=== PATIENT | female | born 2000 | race Caucasian/White ===

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

== ENCOUNTER 2020-01-01 11:39 | Emergency (ER) | payer BC, OTHER ==
[2020-01-01 11:42] VITALS: RESP 18
[2020-01-01] MEDS ORDERED: SODIUM CHLORIDE 0.9% 1,000 ML IV ONE (11:53)
[2020-01-01] MEDS ORDERED: ONDANSETRON 4 MG/2 ML VIAL IVP STA (11:53)
[2020-01-01] MEDS ORDERED: SODIUM CHLORIDE 0.9% 500 ML 500 ML IV ONE (11:53)
[2020-01-01] MEDS ORDERED: SODIUM CHLORIDE 0.9% 1,000 ML IV SCH (12:00)
[2020-01-01] MEDS ORDERED: METOCLOPRAMIDE 5 MG/ML 2 ML VIAL IVP STA (12:01)
--- NOTE | 2020-01-01 12:06 | ED ---
Nausea/Vomiting/Diarrhea HPI - General Chief complaint: Nausea/Vomiting/Diarrhea Stated complaint: vomiting/blurred vision Time Seen by Provider: 01/01/20 11:52 Source: patient Mode of arrival: ambulatory Limitations: no limitations - History of Present Illness Initial comments: 19yo female presents for chief complaint of concern for dehydration. Patient states that she has been vomiting since she found out she is . Patient states that she has had operative ultrasound confirming intrauterine however she states her last had no heart beat. Patient states that she was told it was too early for an heartbeat at that time. Patient denies any vaginal bleeding vaginal discharge or severe pain she states she is slight discomfort after vomiting. Patient states that today after vomiting she felt lightheaded and her vision was slightly blurred as though she was going to pass out. Patient states she did not have actual syncopal episode she states she remained conscious. Patient denied chest pain shortness of breath, headache or sensation the room was spinning. Patient denies additional complaints and presents to the ER for symptomatically treatment she sees Dr. Collins. - Related Data Previous Rx's Medication Instructions Recorded Cephalexin [Keflex] 500 mg PO Q12HR 3 Days #6 cap 01/01/20 Doxylamine/Pyridoxine HCl (B6) 1 each PO HS 7 Days #7 tablet. 01/01/20 [Joyce De La Garza 10-10 mg Tablet] Allergies Allergy/AdvReac Type Severity Reaction Status Date / Time No Known Allergies Allergy Verified 01/01/20 13:40 Review of Systems ROS Statement: Those systems with pertinent positive or pertinent negative responses have been documented in the HPI. ROS Other: All systems not noted in ROS Statement are negative. Past Medical History Past Medical History: No Reported History History of Any Multi-Drug Resistant Organisms: None Reported Past Surgical History: No Surgical Hx Reported Past Psychological History: No Psychological Hx Reported Smoking Status: Never smoker Past Alcohol Use History: None Reported Past Drug Use History: None Reported General Exam - General Exam Comments Initial Comments: General: The patient is awake and alert, in no distress Eye: Pupils are equal, round and reactive to light, extra-ocular movements are intact. No nystagmus. There is normal conjunctiva bilaterally. No signs of icterus. Ears, nose, mouth and throat: There are moist mucous membranes and no oral lesions. Neck: The neck is supple, there is no tenderness or JVD. Cardiovascular: There is a regular rate and rhythm. No murmur, rub or gallop is appreciated. Respiratory: Lungs are clear to auscultation, respirations are non-labored, breath sounds are equal. No wheezes, stridor, rales, or rhonchi. Gastrointestinal: Soft, non-distended, non-tender abdomen without masses or organomegaly noted. There is no rebound or guarding present. Musculoskeletal: Normal ROM, no tenderness. Strength 5/5. Sensation intact. Pulses equal bilaterally 2+. Neurological: A&O x 3. CN II-XII intact grossly, There are no obvious motor or sensory deficits. Coordination appears grossly intact. Speech is normal. Skin: Skin is warm and dry and no rashes or lesions are noted. Psychiatric: Cooperative, appropriate mood & affect, normal judgment. Limitations: no limitations Course Vital Signs 01/01/20 01/01/20 11:41 13:54 Temperature 98.7 F 98.4 F Pulse Rate 101 H 98 Respiratory 18 18 Rate Blood Pressure 138/88 139/93 O2 Sat by Pulse 100 97 Oximetry Medical Decision Making - Medical Decision Making Labs stable. +1 ketones. Patient does not appear dry. After medications, tolerating oral intake in the Er. Patient EKG WNL. Patient does not appear toxic. US live IUP with heart rate within acceptable lmits. There is bacteria in urine which will be treated. Patient case discussed with Dr. Ward who is agreeable to discharge if patient comfortable. Patient states she cannot stay as she has to go home to her son requesting discharege. Patient was hydrated in the ER. Patient is to f/u [facility] OBGYN. - Lab Data Result diagrams: 01/01/20 12:23 01/01/20 12:21 Lab Results 01/01/20 01/01/20 01/01/20 Range/Units 12:21 12:21 12:23 WBC 10.7 (4.0-11.0) k/uL RBC 5.01 (3.80-5.40) m/uL Hgb 14.8 (11.4-16.0) gm/dL Hct 46.5 H (34.0-46.0) % MCV 92.7 (80.0-100.0) fL MCH 29.6 (25.0-35.0) pg MCHC 31.9 (31.0-37.0) g/dL RDW 12.3 (11.5-15.5) % Plt Count 339 (150-450) k/uL Neutrophils % 82 % Lymphocytes % 11 % Monocytes % 5 % Eosinophils % 0 % Basophils % 0 % Neutrophils # 8.8 H (1.3-7.7) k/uL Lymphocytes # 1.2 (1.0-4.8) k/uL Monocytes # 0.5 (0-1.0) k/uL Eosinophils # 0.1 (0-0.7) k/uL Basophils # 0.0 (0-0.2) k/uL Sodium 136 L (137-145) mmol/L Potassium 4.2 (3.5-5.1) mmol/L Chloride 104 (98-107) mmol/L Carbon Dioxide 24 (22-30) mmol/L Anion Gap 8 mmol/L BUN 5 L (7-17) mg/dL Creatinine 0.46 L (0.52-1.04) mg/dL Est GFR (CKD-EPI)AfAm >90 (>60 ml/min/1.73 sqM) Est GFR (CKD-EPI)NonAf >90 (>60 ml/min/1.73 sqM) Glucose 88 (74-99) mg/dL Calcium 9.9 (8.4-10.2) mg/dL Total Bilirubin 1.7 H (0.2-1.3) mg/dL AST 18 (14-36) U/L ALT 14 (4-34) U/L Alkaline Phosphatase 75 (38-126) U/L Total Protein 6.8 (6.3-8.2) g/dL Albumin 4.5 (3.5-5.0) g/dL HCG, Quant 920979.0 mIU/mL Urine Color Yellow Urine Appearance Turbid H (Clear) Urine pH 8.0 (5.0-8.0) Ur Specific [place] 1.019 (1.001-1.035) Urine Protein Trace H (Negative) Urine Glucose (UA) Negative (Negative) Urine Ketones 1+ H (Negative) Urine Blood Negative (Negative) Urine Nitrite Negative (Negative) Urine Bilirubin Negative (Negative) Urine Urobilinogen <2.0 (<2.0) mg/dL Ur Leukocyte Esterase Moderate H (Negative) Urine RBC 3 (0-5) /hpf Urine WBC 4 (0-5) /hpf Ur Squamous Epith Cells 4 (0-4) /hpf Amorphous Sediment Occasional H (None) /hpf Urine Bacteria Many H (None) /hpf Urine Mucus Many H (None) /hpf Disposition Clinical Impression: Vomiting, Dehydration, Vomiting during Disposition: HOME SELF-CARE Condition: Good Instructions (If sedation given, give patient instructions): Nausea and Vomiting in (ED) Additional Instructions: Please use medication as discussed. Please follow-up with OBGYN in next 24-48 hours. Please return to emergency room if the symptoms increase or worsen or for any other concerns. Prescriptions: Doxylamine/Pyridoxine HCl (B6) [Joyce De La Garza 10-10 mg Tablet] 1 each PO HS 7 Days #7 tablet. Cephalexin [Keflex] 500 mg PO Q12HR 3 Days #6 cap Is patient prescribed a controlled substance at d/c from ED?: No Referrals: Antonio Trevino MD [REFERRING] - 1-2 days Time of Disposition: 13:49
[2020-01-01] MEDS ORDERED: PYRIDOXINE 100 MG/ML 1 ML VIAL IVP ONE (12:15)
[2020-01-01 12:51] LABS: Amorphous Sediment,Urine Occasional /hpf; Appearance,Urine Turbid (Clear); Bacteria,Urine Many /hpf; Bilirubin,Urine Negative (Negative); Blood,Urine Negative (Negative); Color,Urine Yellow; Glucose,Urine (UA) Negative (Negative); Ketones,Urine 1+ (Negative); Leukocyte Esterase,Urine Moderate (Negative); Mucus,Urine Many /hpf; Nitrite,Urine Negative (Negative); Protein,Urine Trace (Negative); RBC,Urine 3 /hpf (0-5); Specific Gravity,Urine 1.019 (1.001-1.035); Squamous Epithelial Cell,Urine 4 /hpf (0-4); Urobilinogen,Urine <2.0 mg/dL (<2.0); WBC,Urine 4 /hpf (0-5)
[2020-01-01 12:51] LABS: Basophils % (A) 0 %; Eosinophils # (A) 0.1 k/uL (0-0.7); Eosinophils % (A) 0 %; HCT 46.5 % (34.0-46.0); HGB 14.8 gm/dL (11.4-16.0); Lymphocytes # (A) 1.2 k/uL (1.0-4.8); Lymphocytes % (A) 11 %; MCH 29.6 pg (25.0-35.0); MCHC 31.9 g/dL (31.0-37.0); MCV 92.7 fL (80.0-100.0); Mean Platelet Volume 7.3; Monocytes # (A) 0.5 k/uL (0-1.0); Monocytes % (A) 5 %; Neutrophils # (A) 8.8 k/uL (1.3-7.7); Neutrophils % (A) 82 %; Platelet Count 339 k/uL (150-450); RBC 5.01 m/uL (3.80-5.40); RDW 12.3 % (11.5-15.5); WBC 10.7 k/uL (4.0-11.0)
[2020-01-01 13:00] LABS: ALT 14 U/L (4-34); AST 18 U/L (14-36); African American GFR (CKD) >90 (>60 ml/min/1.73 sqM); Albumin 4.5 g/dL (3.5-5.0); Alkaline Phosphatase 75 U/L (38-126); Anion Gap 8 mmol/L; Blood Urea Nitrogen 5 mg/dL (7-17); Calcium 9.9 mg/dL (8.4-10.2); Carbon Dioxide 24 mmol/L (22-30); Chloride 104 mmol/L (98-107); Glucose 88 mg/dL (74-99); Non-African American GFR(CKD) >90 (>60 ml/min/1.73 sqM); Potassium 4.2 mmol/L (3.5-5.1); Sodium 136 mmol/L (137-145); Total Bilirubin 1.7 mg/dL (0.2-1.3); Total Protein 6.8 g/dL (6.3-8.2)
--- NOTE | 2020-01-01 13:35 | US ---
EXAMINATION TYPE: Transabdominal DATE OF EXAM: 01/01/2020 1:12 PM COMPARISON: 01/18/2018 CLINICAL HISTORY: discomfort. Generalized abd pain intermittently occurring, nausea and vomiting in f irst trimester: ; LMP unknown EXAM PERFORMED: Transabdominal (TA) EXAM MEASUREMENTS: GESTATIONAL AGE / DATING Physician Established: Not yet established Dates by LMP: LMP unknown per patient Dates by First Scan: No previous. Dates by Current Scan for: (7 weeks/1 day) EDC: 08/18/2020 MATERNAL ANATOMY Uterus: 11.4 x 6.1 x 4.2cm Right Ovary: 2.9 x 2.6 x 1.8cm Left Ovary: 3.4 x 2.7 x 1.7cm Post CDS / Adnexa: wnl Presence of free fluid: no Presence of corpus luteal cyst: in left ovary = 1.2 x 1.6 x 1.3cm Presence of subchorionic bleed: no GESTATION / SURVEY CRL: 1.0cm (7 weeks/1 day) Yolk Sac (normal less than 6mm): 3.0mm Heart Rate: 149 bpm Rhythm: Normal IUP: Single, Live IUP Date of LMP: unknown Beta HcG (if available): NA Single, live IUP, 7 weeks/1 day, EDC: 08/18/2020; [id number]. IMPRESSION: 1. Live viable 7 weeks 1 day with a heart rate 149 bpm
[2020-01-01 13:55] VITALS: BP 139/93; PULSE 98; TEMP 98.4
[2020-01-02] MEDS ORDERED: PYRIDOXINE 100 MG/ML 1 ML VIAL IVP SCH (09:00)
== END 2020-01-01 13:55 | disposition home or self-care (01) ==
LOC: EC 11:39 → SUPCPDRO 11:39 → EC 13:55
DX: O21.9 Vomiting of pregnancy, unspecified (principal); O99.280 Endocrine, nutritional and metabolic diseases complicating pregnancy, unspecified trimester; E86.0 Dehydration; O99.89 Other specified diseases and conditions complicating pregnancy, childbirth and the puerperium; R82.71 Bacteriuria; Z3A.01 Less than 8 weeks gestation of pregnancy
CPT/HCPCS: 36415; 93005; 80053; 85025; 81001; 84702; 76801; 99284; 96374; 96375; 96361; J3415; J2765

== ENCOUNTER 2020-07-14 16:00 | Outpatient (CLI) | payer BC, OTHER ==
[2020-07-14 18:23] VITALS: BP 139/84; PULSE 108; RESP 17; TEMP 97.9
[2020-07-14] MEDS ORDERED: LABETALOL 100 MG TAB PO SCH (21:00)
--- NOTE | 2020-08-09 18:52 | P.MSEPDOC ---
Presenting Problems - Arrival Data Date of Arrival on Unit: 07/14/20 Time of Arrival on Unit: 16:00 Mode of Transport: Ambulatory - Complaint OB-Reason for Admission/Chief Complaint: Other Comment: pt here with c/o large gush of clear fluid at 0900 today, pt reports lower abd. cramping that comes and goes that has been happening for the last week, pt reports. having occasional elevated bps during this , pt is non compliant taking her. prescribed labetalol, discussed importance of taking medication, pt denies roque/blurred. vision/epigastric pain, reports + fm, denies vb Medical History - Information : 2 Para: 1 Term: 1 : 0 Abortions: Spontaneous or Elective: 0 Number of Living Children: 1 - Gestational Age Gestational Age by IRAIS (wks/days): 35 Weeks and 1 Days Review of Systems - Review of Systems Constitutional: No problems Breast: No problems ENT: No problems Cardiovascular: No problems Respiratory: No problems Gastrointestinal: No problems Genitourinary: No problems Musculoskeletal: No problems Neurological: No problems Skin: No problems Vital Signs - Temperature Temperature: 97.9 F Temperature Source: Temporal Artery Scan - Pulse Right Brachial Pulse Rate: 108 Pulse Assessment Method: Automatic Cuff - Respirations Respiratory Rate: 17 Oxygen Delivery Method: Room Air - Blood Pressure Right Arm Blood Pressure: 139/84 Blood Pressure Mean: 102 Blood Pressure Source: Automatic Cuff Medical Screen Scoring (Pre) - Cervical Exam Dilation: 0 cm = 0 Effacement: Exam Deferred Membranes: Intact - Uterine Contractions Frequency: > 5 minutes apart = 1 Intensity: N/A - Maternal Vital Signs Maternal Temperature: N/A Maternal Blood Pressure: Systolic >139 = 2 Signs of Preeclampsia: Headache = 1 Maternal Respirations: N/A - Maternal Trauma Maternal Trauma: N/A - Assessment - Baby A Baseline FHR: 135 Heart Rate - NICHD Category: Category I (Normal) = 0 NST: Reactive Position: N/A Station: N/A - Total Score - Baby A Total Score - Baby A: 4 - Total Score - Baby B Total Score - Baby B: 4 - Total Score - Baby C Total Score - Baby C: 4 - Level of Risk - Baby A Level of Risk - Baby A: Low (0-5) - Level of Risk - Baby B Level of Risk - Baby B: Low (0-5) - Level of Risk - Baby C Level of Risk - Baby C: Low (0-5) Physician Notification (Pre) - Physician Notified Physician Notified Date: 07/14/20 Physician Notified Time: 17:21 New Order Received: Yes (dc home 30 minutes after labetalol dose if bp less than 140/90) Disposition - Disposition OB Disposition: Discharge to home, Written follow up instructions reviewed Discharge Date: 07/14/20 Discharge Time: 18:10 I agree with the RN Medical Screening Exam: No Case reviewed; plan agreed upon as documented in EMR&OBIX.: No Comments: obix record unable to access Diagnosis: third trimester
== END 2020-07-14 18:10 | disposition home or self-care (01) ==
LOC: FBPOP 16:00
PROVIDERS: ATTEND Obstetrics & Gynecology
DX: Z36.9 Encounter for antenatal screening, unspecified (principal); Z3A.35 35 weeks gestation of pregnancy
CPT/HCPCS: 59025; 99213

== ENCOUNTER 2020-08-02 10:56 | Outpatient (CLI) | payer BC, OTHER ==
[2020-08-02 13:12] VITALS: BP 143/81; PULSE 86; RESP 16; TEMP 97.8
--- NOTE | 2020-08-03 08:01 | P.MSEPDOC ---
Presenting Problems - Arrival Data Date of Arrival on Unit: 08/02/20 Time of Arrival on Unit: 10:56 Mode of Transport: Ambulatory - Complaint OB-Reason for Admission/Chief Complaint: Possible Onset of Labor Medical History - Information : 2 Para: 1 Number of Living Children: 1 - Gestational Age Gestational Age by IARIS (wks/days): 37 Weeks and 6 Days - History Complications: Chronic HTN Review of Systems - Review of Systems Constitutional: No problems Breast: No problems ENT: No problems Cardiovascular: No problems Respiratory: No problems Gastrointestinal: No problems Genitourinary: No problems Musculoskeletal: No problems Neurological: No problems Skin: No problems Vital Signs - Temperature Temperature: 97.8 F Temperature Source: Temporal Artery Scan - Pulse Right Sitting Brachial Pulse Rate: 86 Pulse Assessment Method: Automatic Cuff - Respirations Respiratory Rate: 16 Oxygen Delivery Method: Room Air O2 Sat by Pulse Oximetry: 99 - Blood Pressure Right Arm Sitting Blood Pressure: 143/81 Blood Pressure Mean: 101 Blood Pressure Source: Automatic Cuff Medical Screen Scoring (Pre) - Cervical Exam Dilation: 1-3 cm = 1 Membranes: Intact - Uterine Contractions Frequency: N/A Duration: N/A Intensity: N/A - Maternal Vital Signs Maternal Temperature: N/A Maternal Blood Pressure: N/A Signs of Preeclampsia: N/A - Maternal Trauma Maternal Trauma: N/A - Assessment - Baby A Baseline FHR: 130 Heart Rate - NICHD Category: Category I (Normal) = 0 NST: Reactive Position: N/A - Total Score - Baby A Total Score - Baby A: 1 - Total Score - Baby B Total Score - Baby B: 1 - Total Score - Baby C Total Score - Baby C: 1 - Level of Risk - Baby A Level of Risk - Baby A: Low (0-5) - Level of Risk - Baby B Level of Risk - Baby B: Low (0-5) - Level of Risk - Baby C Level of Risk - Baby C: Low (0-5) Physician Notification (Pre) - Physician Notified Physician Notified Date: 08/02/20 Physician Notified Time: 12:30 New Order Received: Yes - Notification Comment Comment: discharge pt home at this time Disposition - Disposition OB Disposition: Physician follow up in office, Discharge to home Discharge Date: 08/02/20 Discharge Time: 12:50 I agree with the RN Medical Screening Exam: Yes Case reviewed; plan agreed upon as documented in EMR&OBIX.: Yes Comments: Patient was neither seen nor examined by me Diagnosis: FALSE LABOR AT OR AFTER 37 COMPLETED WEEKS OF GESTATION
== END 2020-08-02 12:50 | disposition home or self-care (01) ==
LOC: FBPOP 10:56
PROVIDERS: ATTEND Obstetrics & Gynecology
DX: O47.1 False labor at or after 37 completed weeks of gestation (principal); Z3A.37 37 weeks gestation of pregnancy
CPT/HCPCS: 59025; 99213

== ENCOUNTER 2020-08-08 16:46 | Inpatient (IN) | payer BC, OTHER ==
[2020-08-08 18:31] LABS: Appearance,Urine Cloudy (Clear); Bacteria,Urine Rare /hpf; Bilirubin,Urine Negative (Negative); Blood,Urine Negative (Negative); Color,Urine Yellow; Glucose,Urine (UA) Negative (Negative); Ketones,Urine Negative (Negative); Leukocyte Esterase,Urine Trace (Negative); Mucus,Urine Rare /hpf; Nitrite,Urine Negative (Negative); Protein,Urine Negative (Negative); RBC,Urine 1 /hpf (0-5); Specific Gravity,Urine 1.014 (1.001-1.035); Squamous Epithelial Cell,Urine 1 /hpf (0-4); Urobilinogen,Urine <2.0 mg/dL (<2.0); WBC,Urine 4 /hpf (0-5)
[2020-08-08 18:34] LABS: Basophils % (A) 0 %; Eosinophils # (A) 0.1 k/uL (0-0.7); Eosinophils % (A) 1 %; HCT 35.5 % (34.0-46.0); HGB 11.3 gm/dL (11.4-16.0); Lymphocytes # (A) 1.8 k/uL (1.0-4.8); Lymphocytes % (A) 14 %; MCH 28.1 pg (25.0-35.0); MCHC 31.8 g/dL (31.0-37.0); MCV 88.4 fL (80.0-100.0); Monocytes % (A) 8 %; Neutrophils # (A) 9.6 k/uL (1.3-7.7); Neutrophils % (A) 75 %; Platelet Count 445 k/uL (150-450); RBC 4.02 m/uL (3.80-5.40); RDW 13.7 % (11.5-15.5); WBC 12.8 k/uL (4.0-11.0)
[2020-08-08] MEDS: LABETALOL 200 MG TAB PO SCH (18:42)
[2020-08-08 18:43] LABS: ALT 12 U/L (4-34); AST 18 U/L (14-36); African American GFR (CKD) >90 (>60 ml/min/1.73 sqM); Blood Urea Nitrogen 7 mg/dL (7-17); LDH 411 U/L (313-618); Non-African American GFR(CKD) >90 (>60 ml/min/1.73 sqM); Uric Acid 3.8 mg/dL (3.7-7.4)
[2020-08-08 19:15] LABS: Creatinine,Urine Random 91.8 mg/dL
[2020-08-08 19:16] LABS: Creatinine,Urine Random 90.2 mg/dL; Protein/Creatinine Ratio,Urine 0.177
[2020-08-09] MEDS ORDERED: CALCIUM CARBONATE 500 MG CHEWABLE PO PRN (03:16)
[2020-08-09] MEDS ORDERED: OXYTOCIN 10 UNIT/ML 1 ML VIAL IM PRN (06:41)
[2020-08-09] MEDS ORDERED: TERBUTALINE 1 MG/ML VIAL SQ PRN (06:41)
[2020-08-09] MEDS ORDERED: CARBOPROST TROMETHAMINE 250 MCG/ML 1 ML AMP IM PRN (06:41)
[2020-08-09] MEDS ORDERED: METHYLERGONOVINE 0.2 MG/ML 1 ML AMP IM PRN (06:41)
[2020-08-09] MEDS ORDERED: LIDOCAINE 0.5% (PF) 5 MG/ML (50 ML SDV) SQ PRN (06:41)
[2020-08-09] MEDS ORDERED: OXYTOCIN 30 UNITS/500 ML NS 30 UNIT in SALINE 1 500ML.BAG IV SCH (06:45)
[2020-08-09] MEDS: LABETALOL 200 MG TAB PO SCH ×2 (07:03→22:02)
[2020-08-09 07:26] LABS: Basophils % (A) 0 %; Eosinophils # (A) 0.1 k/uL (0-0.7); Eosinophils % (A) 1 %; HCT 34.7 % (34.0-46.0); HGB 10.9 gm/dL (11.4-16.0); Hypochromasia Slight; Lymphocytes # (A) 1.8 k/uL (1.0-4.8); Lymphocytes % (A) 15 %; MCH 27.6 pg (25.0-35.0); MCHC 31.5 g/dL (31.0-37.0); MCV 87.9 fL (80.0-100.0); Mean Platelet Volume 8.3; Monocytes # (A) 0.8 k/uL (0-1.0); Monocytes % (A) 6 %; Neutrophils # (A) 9.5 k/uL (1.3-7.7); Neutrophils % (A) 77 %; Platelet Count 399 k/uL (150-450); RBC 3.96 m/uL (3.80-5.40); RDW 13.7 % (11.5-15.5); WBC 12.4 k/uL (4.0-11.0)
[2020-08-09] MEDS: LACTATED RINGERS 1,000 ML IV SCH ×2 (07:27→10:28)
--- NOTE | 2020-08-09 08:36 | P.HPOB ---
History of Present Illness H&P Date: 08/09/20 This is a 20-year-old white female 2 para 1001 EDC 08/17/2020 at 39 weeks gestation. Patient presented to labor and delivery yesterday from the office with elevated blood pressures and a single deceleration. Her history is significant for -induced hypertension, on labetalol 200 mg twice daily. Yesterday in the office during the course of an NST, a single deceleration was noted that was judged to be type I. She was sent to labor and delivery for further monitoring, where 3-4 variable decelerations were noted. Decision was made to admit the patient for overnight, and for induction this morning. Fetus is been active throughout the . Patient denies he adache, visual changes, or right upper quadrant pain. New para with For anxiety. Past surgical history is negative. Current medications labetalol 200 mg twice daily, Zofran 4 mg when necessary, vitamin daily. ALLERGIES none known. Family history significant for hypertension and diabetes, PCOS. Social history patient is single, father of the baby is involved. She denies tobacco alcohol or drug use. history is significant for blood type A+, rubella status immune. Urine culture, hepatitis B surface antigen, HIV testing, gonorrhea and chlamydia cultures, group B strep cultures all negative. One-hour Glucola 128. On examination patient is 5 foot 1 inch, 146 pounds, initial blood pressure on admission 160/80, repeat 138/72. The general physical exam is within normal limits, the chest is clear in all armendariz. Extremities reveal no edema. Reflexes are normal, 2+ bilateral lower extremities. Cervix is 3 cm dilated, 70% effaced, -2 station, vertex presentation. Artificial amniorrhexis reveals clear fluid. Internal scalp lead is applied. heart tracing this morning is consistent with reactive NST. Impression: 39 week intrauterine , nonreassuring heart tones yesterday, gestational hypertension. For induction of labor this morning. Plan: Close maternal and surveillance. Oxytocin per hospital protocol. Analgesic options reviewed. Anticipate normal spontaneous vaginal delivery. Review of Systems Constitutional: Reports as per HPI Past Medical History Past Medical History: No Reported History History of Any Multi-Drug Resistant Organisms: None Reported Past Surgical History: No Surgical Hx Reported Past Anesthesia/Blood Transfusion Reactions: No Reported Reaction Past Psychological History: No Psychological Hx Reported, Anxiety Smoking Status: Never smoker Past Alcohol Use History: None Reported Past Drug Use History: None Reported - Past Family History Mother Family Medical History: No Reported History Medications and Allergies Home Medications Medication Instructions Recorded Confirmed Type Labetalol [Trandate] 200 mg PO BID 07/14/20 08/08/20 History Pnv,Calcium 72/Iron/Folic Acid 1 tablet PO DAILY 07/14/20 08/08/20 History [ Plus Tablet] Allergies Allergy/AdvReac Type Severity Reaction Status Date / Time No Known Allergies Allergy Verified 08/08/20 16:56 Exam Vital Signs Temp Pulse Resp BP 08/09/20 03:57 73 20 131/60 08/08/20 23:51 97.7 F 78 20 139/79 08/08/20 19:24 98.2 F 71 16 139/76 08/08/20 17:28 97.9 F 96 16 160/80 Intake and Output 08/08/20 08/09/20 08/09/20 22:59 06:59 14:59 Intake Total 600 Balance 600 Intake: Oral 600 Other: # Voids 4 2 Weight 63.503 kg See dictation under HPI please Results Result Diagrams: 08/09/20 07:17 08/08/20 18:15 Abnormal Lab Results - Last 24 Hours (Table) 08/08/20 08/08/20 08/08/20 Range/Units 18:00 18:00 18:15 WBC (4.0-11.0) k/uL Hgb (11.4-16.0) gm/dL Neutrophils # (1.3-7.7) k/uL Creatinine 0.49 L (0.52-1.04) mg/dL Urine Appearance Cloudy H (Clear) Ur Leukocyte Esterase Trace H (Negative) Urine Bacteria Rare H (None) /hpf Urine Mucus Rare H (None) /hpf U Random Total Protein 16 H (<12) mg/dL 08/08/20 08/09/20 Range/Units 18:15 07:17 WBC 12.8 H 12.4 H (4.0-11.0) k/uL Hgb 11.3 L 10.9 L (11.4-16.0) gm/dL Neutrophils # 9.6 H 9.5 H (1.3-7.7) k/uL Creatinine (0.52-1.04) mg/dL Urine Appearance (Clear) Ur Leukocyte Esterase (Negative) Urine Bacteria (None) /hpf Urine Mucus (None) /hpf U Random Total Protein (<12) mg/dL Assessment and Plan Assessment: 39 week intrauterine , hypertension of , nonreassuring heart tones upon assessment yesterday. Plan: All signs at this time reassuring. Oxytocin per hospital protocol. Close maternal and surveillance. Analgesic options reviewed. Anticipate normal spontaneous vaginal delivery. Time with Patient: Less than 30
[2020-08-09] MEDS ORDERED: ROPIVACAINE 100 MG, fentaNYL (PF) 200 MCG in SODIUM CHLORIDE 0.9% 76 ML EPIDURAL ONE (10:30)
[2020-08-09] MEDS ORDERED: diphenhydrAMINE ELIXIR 25 MG/10 ML CUP PO PRN (15:56)
[2020-08-09] MEDS ORDERED: ACETAMINOPHEN TAB 325 MG TAB PO PRN (15:56)
[2020-08-09] MEDS ORDERED: ZOLPIDEM 5 MG TAB PO PRN (15:56)
[2020-08-09] MEDS ORDERED: diphenhydrAMINE 25 MG CAP PO PRN (15:56)
[2020-08-09] MEDS ORDERED: HYDROCORTISONE 2.5% RECTAL CREAM 30 GM TUBE RECTAL PRN (15:56)
[2020-08-09] MEDS ORDERED: LANOLIN CREAM 5 GM TUBE TOPICAL PRN (15:56)
[2020-08-09] MEDS ORDERED: diphenhydrAMINE 50 MG/ML 1 ML VIAL IVP PRN ×2 (15:56)
[2020-08-09] MEDS ORDERED: diphenhydrAMINE 50 MG CAP PO PRN (15:56)
[2020-08-09] MEDS ORDERED: BENZOCAINE/MENTHOL SPRAY 1 GM/SPRAY AEROSOL TOPICAL PRN (15:56)
[2020-08-09] MEDS ORDERED: SIMETHICONE 80 MG CHEWABLE PO PRN (15:56)
--- NOTE | 2020-08-09 15:56 | P.PROBDLV ---
Vaginal Delivery Note - . Vaginal Delivery Note: This is a 20-year-old white female 2 para 1001 EDC 08/17/2020 at 39 weeks gestation. Patient presented last evening with elevated blood pressures in the office, on labetalol 200 mg twice a day. Blood pressures stabilized in triage, however several variable type decelerations were noted spontaneously, and the decision was made to monitor the patient through the evening. This morning, patient was 3 cm dilated, 70% effaced, and artificial amniorrhexis revealed clear fluid. Oxytocin was started and titrated per hospital protocol. Her blood pressure remained stable throughout the day. Epidural was placed per her request. She became completely dilated at 1515 hrs. and began the second stage of labor at that time. Perineal body was prepped and draped in usual sterile fashion. With excellent maternal expulsive efforts the infant's head delivered occiput anterior and he restituted accordingly. There was no nuchal cord noted. The left or anterior shoulder was delivered easily from underneath the pubic symphysis at which time the oropharynx, nasopharynx, and external nares were all bulb suctioned on the perineal body. Patient was officially delivered of a liveborn male infant at 1538 hrs. Umbilical cord was doubly clamped and ligated, he was handed to waiting nurses for evaluation where scores of 9 and 9 at one and 5 minutes respectively were given. weight 3545 g or 7 lbs. 13 oz. Placenta delivered spontaneously, it was inspected and noted to be intact with trivascular cord at 1540 hrs. Uterus is then massaged. Careful inspection of the cervix, vagina, perineum, periurethral, and perirectal areas revealed no significant lacerations. There was a small skin separation next to the clitoris which was superficial, less than 1 cm, and clinically unremarkable. Total estimated blood loss 250 mL's. All sponge needle and instrument counts are correct. Patient is allowed to begin the bonding experience with the family. She is requesting circumcision for her infant son.
[2020-08-09] MEDS: IBUPROFEN 600 MG TAB PO PRN (16:23)
[2020-08-09] MEDS: SENNOSIDES-DOCUSATE SODIUM 1 EACH TAB PO SCH (22:18)
[2020-08-10] MEDS: IBUPROFEN 600 MG TAB PO PRN (01:40)
[2020-08-10 03:34] VITALS: RESP 16
--- NOTE | 2020-08-10 07:37 | P.DS ---
Providers Date of admission: 08/09/20 06:27 Expected date of discharge: 08/10/20 Attending physician: Berna Collins Primary care physician: Stated None Hospital Course: This is a 20-year-old white female 2 para 1001 EDC 08/17/2020 at 39 weeks gestation. Patient presented with mildly elevated blood pressures and nonreassuring heart tones for induction. Fetus is been active throughout the . Patient is on labetalol 200 mg twice daily. Admitting blood pressure 160/80, repeat 138/72. Please see dictated history and physical for details. Artificial amniorrhexis revealed clear fluid. Epidural was placed per patient's request. She went on to deliver vaginally a liveborn male infant with scores of 9 and 9 at one and 5 minutes respectively. Infant weighed 7 lbs. 13 oz. or 3545 g. Estimated blood loss 250 mL's. Please see dictated delivery note for details. This 20 the patient is doing well. Her blood pressure is stable, 130s over 70s to 80s. She is voiding, ambulating, passing flatus without difficulty. Vital signs are stable and she is afebrile. Breast-feeding is going well. I have given her prescription for a double electric breast pump. Circumcision is performed this morning. Patient is judged to be in good condition for discharge home. She will follow-up with me in the office in 2 weeks, continuing daily blood pressure monitoring and documentation. She will continue labetalol 200 mg twice a day. She will call with any fevers shakes or chills, foul smelling or copious lochia, with the passage of large blood clots, with any pain not alleviated by [id number] products, or indeed with any concerns. [place] infant will follow-up with illuminator as per recommendations. Patient Condition at Discharge: Good Plan - Discharge Summary Discharge Rx Participant: No New Discharge Prescriptions: No Action Labetalol [Trandate] 200 mg PO BID Pnv,Calcium 72/Iron/Folic Acid [ Plus Tablet] 1 tablet PO DAILY Discharge Medication List Labetalol [Trandate] 200 mg PO BID 07/14/20 [History] Pnv,Calcium 72/Iron/Folic Acid [ Plus Tablet] 1 tablet PO DAILY 07/14/20 [History] Follow up Appointment(s)/Referral(s): Berna Collins MD [STAFF PHYSICIAN] - 2 Weeks
[2020-08-10] MEDS: LABETALOL 200 MG TAB PO SCH (08:57)
[2020-08-10] MEDS: SENNOSIDES-DOCUSATE SODIUM 1 EACH TAB PO SCH (08:59)
[2020-08-10 15:45] VITALS: BP 138/81; PULSE 68; TEMP 98.5
--- NOTE | 2020-08-11 01:07 | P.MSEPDOC ---
Presenting Problems - Arrival Data Date of Arrival on Unit: 08/09/20 Time of Arrival on Unit: 06:00 Mode of Transport: Wheelchair - Complaint OB-Reason for Admission/Chief Complaint: Other Comment: pt was at office for check up, pt reports being examined in office and being dilated to 3 cm, pt has been feeling increase in contraction discomfort since exam, pt here for further monitoring due to living an hour away, pt states she has had elevated bps with , denies roque/blurred vision/epigastric pain Medical History - Information : 2 Para: 1 Term: 1 : 0 Abortions: Spontaneous or Elective: 0 Number of Living Children: 1 - Gestational Age Gestational Age by IRAIS (wks/days): 38 Weeks and 6 Days Review of Systems - Review of Systems Constitutional: No problems Breast: No problems ENT: No problems Cardiovascular: No problems Respiratory: No problems Gastrointestinal: No problems Genitourinary: No problems Musculoskeletal: No problems Neurological: No problems Skin: No problems Vital Signs - Temperature Temperature: 98.5 F Temperature Source: Oral - Pulse Right Brachial Pulse Rate: 68 Pulse Assessment Method: Pulse Oximetry - Respirations Respiratory Rate: 16 Oxygen Delivery Method: Room Air O2 Sat by Pulse Oximetry: 100 - Blood Pressure Right Arm Blood Pressure: 138/81 Blood Pressure Mean: 100 Blood Pressure Source: Automatic Cuff - Comment Vital Signs Comment: 157/78, 138/72, 136/72 Medical Screen Scoring (Pre) - Cervical Exam Dilation: 1-3 cm = 1 Effacement: More than 50% = 2 Membranes: Intact - Uterine Contractions Frequency: > 5 minutes apart = 1 Duration: > 40 seconds = 2 Intensity: N/A - Maternal Vital Signs Maternal Temperature: N/A Maternal Blood Pressure: Systolic >139 = 2 Signs of Preeclampsia: N/A Maternal Respirations: N/A - Maternal Trauma Maternal Trauma: N/A - Assessment - Baby A Baseline FHR: 155 Heart Rate - NICHD Category: Category I (Normal) = 0 NST: Reactive Position: N/A Station: N/A - Total Score - Baby A Total Score - Baby A: 8 - Total Score - Baby B Total Score - Baby B: 8 - Total Score - Baby C Total Score - Baby C: 8 - Level of Risk - Baby A Level of Risk - Baby A: Medium (6-9) - Level of Risk - Baby B Level of Risk - Baby B: Medium (6-9) - Level of Risk - Baby C Level of Risk - Baby C: Medium (6-9) Physician Notification (Pre) - Physician Notified Physician Notified Date: 08/08/20 Physician Notified Time: 17:19 New Order Received: Yes (monitor pt in triage) Disposition - Disposition OB Disposition: Observe, Triage Discharge Date: 08/10/20 Discharge Time: 17:55 I agree with the RN Medical Screening Exam: Yes Case reviewed; plan agreed upon as documented in EMR&OBIX.: Yes Diagnosis: LOUSE-BORNE TYPHUS
== END 2020-08-10 17:55 | disposition home or self-care (01) | DRG 807 ==
LOC: FBPOP 16:46 → 4FBP 17:50 → OBSVTOIN 08-09 06:27
PROVIDERS: ADMIT Obstetrics & Gynecology; ATTEND Obstetrics & Gynecology
PROC: 10E0XZZ Delivery of Products of Conception, External Approach (ICD-10-PCS; principal; 2020-08-09)
PROC: 10907ZC Drainage of Amniotic Fluid, Therapeutic from Products of Conception, Via Natural or Artificial Opening (ICD-10-PCS; 2020-08-09)
PROC: 3E033VJ Introduction of Other Hormone into Peripheral Vein, Percutaneous Approach (ICD-10-PCS; 2020-08-09)
PROC: 3E0R3BZ Introduction of Anesthetic Agent into Spinal Canal, Percutaneous Approach (ICD-10-PCS; 2020-08-09)
DX: O76 Abnormality in fetal heart rate and rhythm complicating labor and delivery (principal); Z37.0 Single live birth; O99.344 Other mental disorders complicating childbirth; O13.4 Gestational [pregnancy-induced] hypertension without significant proteinuria, complicating childbirth; F41.9 Anxiety disorder, unspecified; Z79.899 Other long term (current) drug therapy; Z3A.39 39 weeks gestation of pregnancy; Z82.49 Family history of ischemic heart disease and other diseases of the circulatory system; Z83.3 Family history of diabetes mellitus
CPT/HCPCS: 81001; 82565; 82570; 83615; 84156; 84450; 84460; 84520; 84550; 85025; 86850; 86900; 86901

== ENCOUNTER 2021-11-23 22:45 | Outpatient (CLI) | payer BC, OTHER ==
[2021-11-23 23:38] LABS: Amorphous Sediment,Urine Occasional /hpf; Appearance,Urine Turbid (Clear); Bacteria,Urine Rare /hpf; Bilirubin,Urine Negative (Negative); Blood,Urine Negative (Negative); Color,Urine Yellow; Glucose,Urine (UA) Negative (Negative); Ketones,Urine 1+ (Negative); Leukocyte Esterase,Urine Negative (Negative); Mucus,Urine Rare /hpf; Nitrite,Urine Negative (Negative); PH, Urine 7.5 (5.0-8.0); Protein,Urine Negative (Negative); RBC,Urine <1 /hpf (0-5); Squamous Epithelial Cell,Urine 2 /hpf (0-4); Urobilinogen,Urine <2.0 mg/dL (<2.0); WBC,Urine 1 /hpf (0-5)
[2021-11-24 00:35] VITALS: BP 130/63; PULSE 72; RESP 16; TEMP 98
--- NOTE | 2021-12-10 10:54 | P.MSEPDOC ---
Presenting Problems - Arrival Data Date of Arrival on Unit: 11/23/21 Time of Arrival on Unit: 22:45 Mode of Transport: EMS - Complaint OB-Reason for Admission/Chief Complaint: Pain Comment: back pain, suprapubic pressure, spotting one time at 1500 Medical History - Information : 3 Para: 2 Term: 0 : 2 Abortions: Spontaneous or Elective: 0 Number of Living Children: 2 - Gestational Age Gestational Age by IRAIS (wks/days): 28 Weeks and 4 Days - History Complications: Prior Review of Systems - Review of Systems Constitutional: No problems Breast: No problems ENT: No problems Cardiovascular: No problems Respiratory: No problems Gastrointestinal: No problems Genitourinary: No problems Musculoskeletal: No problems Neurological: No problems Skin: No problems Vital Signs - Temperature Temperature: 98 F Temperature Source: Oral - Pulse Right Sitting Pulse Rate: 72 Pulse Assessment Method: Automatic Cuff - Respirations Respiratory Rate: 16 Oxygen Delivery Method: Room Air - Blood Pressure Right Arm Sitting Blood Pressure: 130/63 Blood Pressure Mean: 85 Blood Pressure Source: Automatic Cuff Medical Screen Scoring - Cervical Exam Membranes: Intact - Assessment - Baby A Baseline FHR: 135 Heart Rate - NICHD Category: Category I (Normal) NST: Reactive Physician Notification - Physician Notified Physician Notified Date: 11/23/21 Physician Notified Time: 23:39 Physician: Sukhi Horvath Order Received: Yes Maternal Triage Index - Maternal Triage Index Presenting for scheduled procedure w/no complaint: No - Stat/Priority 1 Stat Priority 1: No - Urgent/Priority 2 Urgent Priority 2: No - Prompt/Priority 3 Prompt Priority 3: No - Non-Urgent/Priority 4 Non-Urgent Priority 4: No - Scheduled/Requesting Priority 5 Scheduled/Requesting Priority 5: No Disposition - Disposition OB Disposition: Discharge to home, Written follow up instructions reviewed Discharge Date: 11/23/21 Discharge Time: 23:52 I agree with the RN Medical Screening Exam: Yes Case reviewed; plan agreed upon as documented in EMR&OBIX.: Yes Diagnosis: RELATED CONDITIONS, UNSPECIFIED, THIRD TRIMESTER
== END 2021-11-23 23:52 | disposition home or self-care (01) ==
LOC: FBPOP 22:45
PROVIDERS: ATTEND Obstetrics & Gynecology
DX: O26.93 Pregnancy related conditions, unspecified, third trimester (principal); Z3A.28 28 weeks gestation of pregnancy
CPT/HCPCS: 59025; 81001; 99213

== ENCOUNTER 2022-01-26 01:24 | Inpatient (IN) | payer BC, OTHER ==
[2022-01-26] MEDS ORDERED: LIDOCAINE 0.5% (PF) 5 MG/ML (50 ML SDV) SQ PRN (01:53)
[2022-01-26] MEDS ORDERED: OXYTOCIN 10 UNIT/ML 1 ML VIAL IM PRN (01:53)
[2022-01-26] MEDS ORDERED: TERBUTALINE 1 MG/ML VIAL SQ PRN (01:53)
[2022-01-26] MEDS ORDERED: METHYLERGONOVINE 0.2 MG/ML 1 ML AMP IM PRN (01:53)
[2022-01-26] MEDS ORDERED: CARBOPROST TROMETHAMINE 250 MCG/ML 1 ML AMP IM PRN (01:53)
[2022-01-26] MEDS: LACTATED RINGERS 1,000 ML IV SCH ×2 (02:10→02:41)
[2022-01-26 02:20] LABS: Basophils # (A) 0.1 k/uL (0-0.2); Basophils % (A) 1 %; Eosinophils # (A) 0.1 k/uL (0-0.7); Eosinophils % (A) 1 %; HCT 36.8 % (34.0-46.0); HGB 11.6 gm/dL (11.4-16.0); Lymphocytes # (A) 2.9 k/uL (1.0-4.8); Lymphocytes % (A) 27 %; MCH 27.9 pg (25.0-35.0); MCHC 31.5 g/dL (31.0-37.0); MCV 88.6 fL (80.0-100.0); Mean Platelet Volume 8.5; Monocytes % (A) 10 %; Neutrophils # (A) 6.2 k/uL (1.3-7.7); Neutrophils % (A) 59 %; Platelet Count 418 k/uL (150-450); RBC 4.15 m/uL (3.80-5.40); RDW 13.6 % (11.5-15.5); WBC 10.5 k/uL (3.8-10.6)
--- NOTE | 2022-01-26 05:19 | P.HPOB ---
History of Present Illness H&P Date: 01/26/22 Chief Complaint: IUP at 37-4/7 weeks, labor 21-year-old 002 at 37-4/7 weeks that presents to labor and delivery with complaints of spontaneous rupture of membranes and contractions. Patient states her water broke around 2345 which was clear in nature. Patient noted painful contractions soon after. Patient did call the ambulance and presented to labor and delivery. Patient has been receiving routine care which has been complicated by diagnosis of gestational hyper her tension which she was taken 100 mg of labetalol twice daily. Patient notes good movement. On bloodwork this patient is a blood type of A+, rubella status immune, hepatitis B surface antigen negative, HIV negative, RPR is nonreactive, group beta strep cultures are negative. Review of Systems Constitutional: Denies chills, Denies fatigue, Denies fever Ears, nose, mouth and throat: Denies headache Cardiovascular: Denies leg edema Respiratory: Denies dyspnea Gastrointestinal: Denies constipation, Denies diarrhea, Denies nausea, Denies vomiting Genitourinary: Reports Past Medical History Past Medical History: No Reported History History of Any Multi-Drug Resistant Organisms: None Reported Past Surgical History: No Surgical Hx Reported Past Anesthesia/Blood Transfusion Reactions: No Reported Reaction Past Psychological History: No Psychological Hx Reported, Anxiety Smoking Status: Never smoker Past Alcohol Use History: None Reported Past Drug Use History: None Reported - Past Family History Mother Family Medical History: No Reported History Medications and Allergies Home Medications Medication Instructions Recorded Confirmed Type Vit No.180/Iron/Folic 1 tablet PO DAILY 07/14/20 01/26/22 History [ Plus Tablet] Labetalol [Trandate] 200 mg PO BID 01/26/22 01/26/22 History Allergies Allergy/AdvReac Type Severity Reaction Status Date / Time No Known Allergies Allergy Verified 01/26/22 01:51 Exam Osteopathic Statement: *. No significant issues noted on an osteopathic structural exam other than those noted in the History and Physical/Consult. 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 Nonlabored breathing is appreciated, heart has a regular rate and rhythm, abdomen is gravid, on cervical exam per RN at the time of admission is 5 cm 100% effaced -2 station grossly ruptured. heart tones are noted to be category 1 and she is lori every 3-4 minutes. Results Result Diagrams: 01/26/22 02:09 Assessment and Plan (1) 37 weeks gestation of Current Visit: Yes Status: Acute Code(s): Z3A.37 - 37 WEEKS GESTATION OF SNOMED Code(s): 09547064 (2) Spontaneous onset of labor Current Visit: No Status: Acute Code(s): YLW4113 - SNOMED Code(s): 62981327 (3) Spontaneous rupture of membranes Current Visit: No Status: Acute Code(s): CTS5797 - SNOMED Code(s): 694410030 Plan: 21-year-old 002 at 37-4/7 weeks presents with complaints of spontaneous rupture of membranes and contractions. Patient is noted to be grossly ruptured and admitted to labor and delivery. Patient is requesting epidural. Anesthesia will be notified. Anticipate spontaneous vaginal delivery.
[2022-01-26] MEDS ORDERED: SIMETHICONE 80 MG CHEWABLE PO PRN (05:21)
[2022-01-26] MEDS ORDERED: diphenhydrAMINE 50 MG CAP PO PRN (05:21)
[2022-01-26] MEDS ORDERED: ZOLPIDEM 5 MG TAB PO PRN (05:21)
[2022-01-26] MEDS ORDERED: BENZOCAINE/MENTHOL SPRAY 1 GM/SPRAY AEROSOL TOPICAL PRN (05:21)
[2022-01-26] MEDS ORDERED: diphenhydrAMINE 25 MG CAP PO PRN (05:21)
[2022-01-26] MEDS ORDERED: LANOLIN CREAM 5 GM TUBE TOPICAL PRN (05:21)
[2022-01-26] MEDS ORDERED: HYDROCORTISONE 2.5% RECTAL CREAM 30 GM TUBE RECTAL PRN (05:21)
[2022-01-26] MEDS ORDERED: diphenhydrAMINE 50 MG/ML 1 ML VIAL IVP PRN ×2 (05:21)
--- NOTE | 2022-01-26 05:21 | P.PROBDLV ---
Vaginal Delivery Note - . Vaginal Delivery Note: Findings, viable male infant delivered at 501, weight of 7 lbs. 1 oz., Apgars of 9 and 9 at one and 5 metastases respectively. 21-year-old 002 at 37-4/7 weeks presents to labor and delivery with complaints of spontaneous rupture of membranes clear in nature. Patient is noting regular strong contractions. Patient is noted to be 570 m and was admitted to labor and delivery. Patient quickly requested epidural. Epidural was placed without difficulty by the anesthesia department. Patient progresses labor eventually becoming complete. Patient was placed in the modified lithotomy position began pushing and had a normal spontaneous vaginal delivery of a viable male at 501, weight of 7 lbs. 1 oz., Apgars of 9 and 9 at one and 5 metastases respectively. After two-minute delayed the umbilical cord was doubly clamped and cut. A spontaneous cry was noted at . The placenta was delivered spontaneous intact with a three-vessel cord being noted. On inspection of the patient's vaginal vault no lacerations were appreciated. Uterus is noted to be firm and below the umbilicus. All counts are noted to be correct 2 at the end of the delivery. Patient and tolerated delivery well and are resting comfortably.
[2022-01-26] MEDS ORDERED: OXYTOCIN 30 UNITS/500 ML NS 30 UNIT in SALINE 1 500ML.BAG IV SCH (05:30)
[2022-01-26] MEDS: IBUPROFEN 600 MG TAB PO SCH ×3 (08:01→20:05)
[2022-01-26] MEDS: SENNA LEAF EXTRACT SYRUP 528 MG/15 ML CUP PO SCH ×2 (08:02→20:06)
[2022-01-26] MEDS: SENNOSIDES-DOCUSATE SODIUM 1 EACH TAB PO SCH ×2 (08:02→20:05)
[2022-01-26] MEDS: LABETALOL 100 MG TAB PO SCH ×2 (08:04→20:05)
[2022-01-26] MEDS: PRENATAL VIT-IRON-FOLIC ACID 1 EACH TABLET PO SCH (10:28)
[2022-01-26] MEDS ORDERED: ROPIVACAINE 100 MG, fentaNYL (PF). 200 MCG in SODIUM CHLORIDE 0.9% 76 ML EPIDURAL ONE (10:49)
[2022-01-26] MEDS: ACETAMINOPHEN TAB 325 MG TAB PO PRN (22:22)
[2022-01-27] MEDS: IBUPROFEN 600 MG TAB PO SCH ×2 (01:41→08:50)
[2022-01-27] MEDS: ACETAMINOPHEN TAB 325 MG TAB PO PRN (04:29)
[2022-01-27] MEDS: SENNOSIDES-DOCUSATE SODIUM 1 EACH TAB PO SCH (08:51)
[2022-01-27] MEDS: PRENATAL VIT-IRON-FOLIC ACID 1 EACH TABLET PO SCH (08:51)
[2022-01-27] MEDS: LABETALOL 100 MG TAB PO SCH (08:55)
[2022-01-27 08:59] VITALS: BP 130/88; PULSE 73; RESP 18; TEMP 98.1
--- NOTE | 2022-01-27 09:35 | P.PN ---
Subjective Progress Note Date: 01/27/22 Principal diagnosis: day #1 Slept well. Mild headache. Patient concerned about baby's status. Otherwise no complaints Objective - Vital Signs Vital signs: Vital Signs Temp 98.1 F 01/27/22 08:00 Pulse 73 01/27/22 08:00 Resp 18 01/27/22 08:00 BP 130/88 01/27/22 08:00 Pulse Ox 99 01/27/22 08:00 FiO2 Intake & Output 01/26/22 01/27/22 01/27/22 18:59 06:59 18:59 Output Total 150 Balance -150 Output: Output, Quantitative 150 Blood Loss Other: # Voids 2 1 2 - Constitutional General appearance: Present: average body habitus, cooperative - EENT Eyes: Present: PERRLA ENT: Present: hearing grossly normal - Respiratory Respiratory: bilateral: CTA - Cardiovascular Rhythm: regular - Gastrointestinal Gastrointestinal Comment(s): Fundus firm, midline, symmetric, nontender, 18 week size. - Integumentary Integumentary: Present: normal - Neurologic Neurologic: Present: CNII-XII intact - Musculoskeletal Musculoskeletal: Present: gait normal, strength equal bilaterally - Psychiatric Psychiatric: Present: A&O x's 3, appropriate affect, intact judgment & insight - Labs CBC & Chem 7: 01/26/22 02:09 Assessment and Plan Assessment: Doing well first post day. in nursery, not ready for circumcision or discharge. Plan: Continue care. We will check AST, ALTs, uric acid per patient's complaints this morning. Likely discharge home tomorrow. Time with Patient: Less than 30
[2022-01-27 12:28] LABS: Uric Acid 3.9 mg/dL (3.7-7.4)
[2022-01-27] MEDS: SENNA LEAF EXTRACT SYRUP 528 MG/15 ML CUP PO SCH (13:31)
--- NOTE | 2022-01-28 08:56 | P.DS ---
Providers Date of admission: 01/26/22 01:32 Expected date of discharge: 01/27/22 Attending physician: Diana Melo Primary care physician: Berna [facility] Course: This is a 21-year-old female 3 para 2001 EDC 02/12/2022 who presented at 37-4/7 weeks' gestation with spontaneous amniorrhexis, clear fluid. remarkable for rubella status immune, blood type A+, rupee strep cultures negative. She also has gestational hypertension, well managed on labetalol 200 mg twice daily. Please see dictated history and physical for details. Patient was admitted and quickly went on to deliver a liveborn male with scores of 9 and 9 at one and 5 minutes respectively. There were no lacerations. Infant weighed 3200 g or 7 lbs. 1 oz. Please see dictated delivery note for details. On day number 1 in the evening patient is requesting discharge home. She will continue on labetalol 200 mg twice daily. She will call with any fevers shakes or chills, foul smelling or copious lochia, passage of large blood clots, with any pain not alleviated by [id number] Advil or Aleve, or indeed with any concerns. She will continue taking her labetalol 200 mg twice daily, and report to the office in 2 weeks for blood pressure check. will follow-up with [facility] as per recommendations, he is currently in the nursery and has not yet been discharged home at this time. Contraceptive options have been discussed and will be reviewed further in the office as appropriate. Assessment: Doing well vaginal delivery Patient Condition at Discharge: Good Plan - Discharge Summary Discharge Rx Participant: No New Discharge Prescriptions: No Action Vit No.180/Iron/Folic [ Plus Tablet] 1 tablet PO DAILY Labetalol [Trandate] 200 mg PO BID Discharge Medication List Vit No.180/Iron/Folic [ Plus Tablet] 1 tablet PO DAILY 07/14/20 [History] Labetalol [Trandate] 200 mg PO BID 01/26/22 [History] Discharge Disposition: HOME SELF-CARE
== END 2022-01-27 13:25 | disposition home or self-care (01) | DRG 807 ==
LOC: FBPOP 01:24 → 4FBP 01:32
PROVIDERS: ADMIT Obstetrics & Gynecology Obstetrics; ATTEND Obstetrics & Gynecology Obstetrics
PROC: 10E0XZZ Delivery of Products of Conception, External Approach (ICD-10-PCS; principal; 2022-01-26)
DX: O13.4 Gestational [pregnancy-induced] hypertension without significant proteinuria, complicating childbirth (principal); Z37.0 Single live birth; R51.9 Headache, unspecified; Z3A.37 37 weeks gestation of pregnancy
CPT/HCPCS: 84450; 84460; 84550; 85025; 86850; 86900; 86901